=== PATIENT | male | born 1950 | race Caucasian/White ===

== ENCOUNTER 2023-07-09 09:51 | Outpatient (CLI) | payer MEDICARE, SELFPAY ==
--- NOTE | ~2023-07-09 | XR_ITS ---
XR wrist LT min 3V DATE: 07/09/2023 10:19 INDICATION: Pain, swelling, tightness throughout wrist TECHNIQUE: 4 views COMPARISON: None FINDINGS: There is mild spurring at the radial ulnar articulation. There is prominent invagination of the distal radial articular surface by the navicular bone with sev ere narrowing and prominent spurring at the radionavicular joint. There is prominent osteoarthritic change and apparent degenerative ossicle at the first carpometacarp al joint. There is osteoarthritic change at the third metacarpophalangeal joint including joint space narrowing and prominent spurring of the third metacarpal head. There is a subtle transverse lucency at the medial aspect of the waist of the navicular bone. Nondisp laced fracture is not definitively excluded. Consider MR left wrist examination for further evaluatio n. Mild chondrocalcinosis at the triangular cartilage. IMPRESSION: Transverse lucency waist of navicular bone; consider MR evaluation to exclude navicular w aist fracture Prominent polyarticular osteoarthritis Reviewed, dictated and finalized at location B. IMPRESSION: Transverse lucency waist of navicular bone; consider MR evaluation to exclude navicular waist fracture Prominent polyarticular osteoarthritis
--- NOTE | ~2023-07-09 | XR_ITS ---
XR wrist RT min 3V DATE: 07/09/2023 10:20 INDICATION: Pain, swelling, tightness of the wrists TECHNIQUE: 4 views COMPARISON: None FINDINGS: There is invagination of the distal radial articular surface by the navicular bone, with se jose francisco osteoarthritic change at the radionavicular joint. There cysts of the carpal bones, most prominent at the capitate, likely degenerative. There is attenuation of size of the proximal aspect of the navicular bone, possibly due to old ununit ed fracture? Chondrocalcinosis at the triangular cartilage. There is osteoarthritic change at the second, third and fourth metacarpophalangeal joints. Bony density projects posteriorly at the proximal row carpal bones; prior triquetrum fracture is not excluded. There is overlying dorsal wrist soft tissue swelling. No apparent recent fracture or dislocation is detected. IMPRESSION: Polyarticular osteoarthritis, particularly severe at the radionavicular joint Proximal navicular deformity; cannot exclude old ununited navicular fracture Reviewed, dictated and finalized at location B. IMPRESSION: Polyarticular osteoarthritis, particularly severe at the radionavic ular joint Proximal navicular deformity; cannot exclude old ununited navicular fracture
== END 2023-07-09 09:52 | disposition home or self-care (01) ==
PROVIDERS: PCP Family Medicine; Visit Provider Plastic Surgery
DX: M19.031 Primary osteoarthritis, right wrist (principal); M19.032 Primary osteoarthritis, left wrist
CPT/HCPCS: 73110